=== PATIENT | male | born 1985 | race African-American/Black ===

== ENCOUNTER 2017-01-17 00:21 | Emergency (ER) | payer MEDICAID ==
[~2017-01-17] VITALS: Ht 190.5 cm; Wt 88.5 kg
[2017-01-17 00:52] VITALS: BP 125/55
== END 2017-01-17 04:26 | disposition left against medical advice (07) ==
LOC: ER 00:28
DX: M54.2 Cervicalgia (principal); Z53.21 Procedure and treatment not carried out due to patient leaving prior to being seen by health care provider

== ENCOUNTER 2017-01-17 07:55 | Emergency (ER) | payer MEDICAID ==
[~2017-01-17] VITALS: Ht 190.5 cm; Wt 86.2 kg
[2017-01-17 08:19] VITALS: BP 113/69
[2017-01-17] MEDS ORDERED: KETOROLAC TROMETH 60MG/2ML VIAL IM ONE (08:30)
== END 2017-01-17 09:24 | disposition home or self-care (01) ==
LOC: ER 07:55
DX: S46.911A Strain of unspecified muscle, fascia and tendon at shoulder and upper arm level, right arm, initial encounter (principal); S39.012A Strain of muscle, fascia and tendon of lower back, initial encounter; S20.219A Contusion of unspecified front wall of thorax, initial encounter; F17.210 Nicotine dependence, cigarettes, uncomplicated; X50.9XXA Other and unspecified overexertion or strenuous movements or postures, initial encounter; X50.0XXA Overexertion from strenuous movement or load, initial encounter; Y93.89 Activity, other specified; Y99.8 Other external cause status; Y92.830 Public park as the place of occurrence of the external cause
CPT/HCPCS: 71020; 73030; 96372; 99284; J1885

== ENCOUNTER 2020-04-09 10:57 | Emergency (ER) | payer MEDICAID ==
[~2020-04-09] VITALS: Ht 190.5 cm; Wt 86.2 kg
[2020-04-09 11:36] VITALS: BP 120/84
[2020-04-09] MEDS ORDERED: SODIUM CHLORIDE 0.9% 1,000 ML IV ONE (13:00)
[2020-04-09] MEDS ORDERED: KETOROLAC TROMETH 30 MG/ML 1ML VIAL IV ONE (13:00)
[2020-04-09] MEDS ORDERED: CLINDAMYCIN 600MG IV 50 ML IV ONE (13:00)
[2020-04-09 14:02] LABS: Basophils # (auto) 0.1 10 ^3/uL (0-0.2); Eosinophils # (auto) 0 10 ^3/uL (0-0.8)
[2020-04-09 14:04] LABS: Eosinophils % (auto) 0.2 % (0.0-7.0); Hematocrit 45.7 % (41.0-53.0); Hemoglobin 14.7 g/dL (13.5-17.5); Mean Corpuscular Hemoglobin 25.1 pg (28.0-32.0); Mean Corpuscular Hgb Conc. 32.2 g/dL (32.0-36.0); Mean Corpuscular Volume 77.9 fL (80.0-100.0); Monocytes # (auto) 0.9 10 ^3/uL (0-1.3); Monocytes % (auto) 6.3 % (0.0-12.0); Neutrophils # (auto) 12.7 10 ^3/uL (1.6-8.6); Neutrophils % (auto) 85.5 % (37.0-80.0); Red Blood Cells 5.87 10^6/uL (4.5-5.90); Red Cell Distribution Width 15.3 % (11.8-14.3); White Blood Cell 14.9 10^3/uL (4.4-10.8)
[2020-04-09 14:10] LABS: Calcium 9.9 mg/dL (8.5-10.1); Potassium 3.8 mmol/L (3.5-5.1)
[2020-04-09 14:13] LABS: BUN/Creatinine Ratio 10.2; Bilirubin, Total 0.6 mg/dL (0.2-1.0); Total Protein 9.8 g/dL (6.4-8.2)
[2020-04-09] MEDS ORDERED: IOHEXOL 300 MG/ML 100ML BOTTLE IJ ONE (14:50)
[2020-04-09] MEDS ORDERED: methylPREDNISolone SOD SUCC 125 MG/2 ML VL IV ONE (17:00)
== END 2020-04-09 17:54 | disposition home or self-care (01) ==
LOC: ER 10:57
DX: J36 Peritonsillar abscess (principal); F17.210 Nicotine dependence, cigarettes, uncomplicated
CPT/HCPCS: 36415; 70491; 80053; 85025; 96365; 96375; 99285; J1885; J2930; J3490; J7030; Q9967